=== PATIENT | female | born 1960 | race African-American/Black ===

== ENCOUNTER 2022-04-14 06:49 | Emergency (ER) | payer OTHER ==
[~2022-04-14] VITALS: Ht 157.5 cm; Wt 60.0 kg
[2022-04-14 07:35] VITALS: BP 99/53
[2022-04-14] MEDS ORDERED: ACETAMINOPHEN 325MG TABLET PO ONE (09:15)
[2022-04-14] MEDS ORDERED: IBUP-2028 MT (10:26)
[2022-04-14] MEDS ORDERED: CYCL10TA21 MT (10:26)
== END 2022-04-14 10:40 | disposition home or self-care (01) ==
LOC: ER 07:01
DX: S39.012A Strain of muscle, fascia and tendon of lower back, initial encounter (principal); W18.39XA Other fall on same level, initial encounter; Y93.89 Activity, other specified; Y92.89 Other specified places as the place of occurrence of the external cause; Y99.8 Other external cause status; F17.290 Nicotine dependence, other tobacco product, uncomplicated
CPT/HCPCS: 72100; 73502; 73552; 99284